=== PATIENT | female | born 1995 | race African-American/Black ===

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

== ENCOUNTER 2018-06-10 19:41 | Emergency (ER) | payer SELFPAY ==
[~2018-06-10] VITALS: Ht 152.4 cm; Wt 71.0 kg
[2018-06-10 21:50] VITALS: BP 118/59
[2018-06-10] MEDS ORDERED: NAPROSYN500 MG PO (22:06)
== END 2018-06-10 22:22 | disposition home or self-care (01) | DRG 552 ==
LOC: ED 19:41
DX: S13.9XXA Sprain of joints and ligaments of unspecified parts of neck, initial encounter (principal); M79.18 Myalgia, other site; X58.XXXA Exposure to other specified factors, initial encounter; Y93.9 Activity, unspecified

== ENCOUNTER 2018-08-23 03:27 | Emergency (ER) | payer SELFPAY ==
[~2018-08-23] VITALS: Ht 152.4 cm; Wt 71.0 kg
[2018-08-23 05:09] VITALS: BP 115/58
[2018-08-23] MEDS ORDERED: PEPCID20 MG PO (05:15)
[2018-08-23] MEDS ORDERED: BENADRYL 50MG C50 MG PO (05:15)
== END 2018-08-23 05:20 | disposition home or self-care (01) | DRG 607 ==
LOC: ED 03:27
DX: R22.0 Localized swelling, mass and lump, head (principal); T39.315A Adverse effect of propionic acid derivatives, initial encounter

== ENCOUNTER 2019-02-09 15:15 | Emergency (ER) | payer OTHER ==
[~2019-02-09] VITALS: Ht 152.4 cm; Wt 73.0 kg
[~2019-02-09 15:15] MED LIST changes: +BENADRYL 50MG C50 MG PO; +PEPCID20 MG PO
[2019-02-09] MEDS ORDERED: DICLEGIS1 TAB PO (16:03)
[2019-02-09] MEDS ORDERED: PRE-NATAL PO (16:04)
[2019-02-09 16:55] VITALS: BP 121/64
== END 2019-02-09 16:55 | disposition home or self-care (01) ==
LOC: ED 15:15
DX: R50.9 Fever, unspecified (principal); Z33.1 Pregnant state, incidental

== ENCOUNTER 2019-08-19 23:47 | Emergency (ER) | payer OTHER ==
[~2019-08-19 23:47] MED LIST changes: +DICLEGIS1 TAB PO; +PRE-NATAL PO
[2019-08-20 02:18] VITALS: BP 128/73
== END 2019-08-20 02:20 | disposition home or self-care (01) ==
LOC: ED 23:47
DX: O99.89 Other specified diseases and conditions complicating pregnancy, childbirth and the puerperium (principal); M79.642 Pain in left hand; M79.641 Pain in right hand; Z3A.37 37 weeks gestation of pregnancy

== ENCOUNTER 2020-06-26 | Emergency (ER) | payer OTHER | END 2020-06-26 02:30 | disposition home or self-care (01) | DX: S00.81XA Abrasion of other part of head, initial encounter (principal); S60.042A Contusion of left ring finger without damage to nail, initial encounter; S60.052A Contusion of left little finger without damage to nail, initial encounter; J45.909 Unspecified asthma, uncomplicated; Y04.8XXA Assault by other bodily force, initial encounter; Y92.009 Unspecified place in unspecified non-institutional (private) residence as the place of occurrence of the external cause ==

== ENCOUNTER 2022-08-24 05:19 | Emergency (ER) | payer OTHER ==
[~2022-08-24] VITALS: Ht 152.4 cm; Wt 75.7 kg
[2022-08-24 05:26] VITALS: BP 120/81
[2022-08-24 05:30] VITALS: BP 117/65
[2022-08-24 05:45] VITALS: BP 104/62
[2022-08-24 06:00] VITALS: BP 107/65
[2022-08-24 06:15] VITALS: BP 103/54
[2022-08-24] MEDS ORDERED: GENTAMICIN0.3 % OS (06:21)
[2022-08-24 06:24] VITALS: BP 103/54
== END 2022-08-24 06:46 | disposition home or self-care (01) ==
LOC: ED 05:19
DX: J02.9 Acute pharyngitis, unspecified (principal); H10.9 Unspecified conjunctivitis; J45.909 Unspecified asthma, uncomplicated